=== PATIENT | female | born 1955 | race Caucasian/White ===

== ENCOUNTER 2018-04-16 13:53 | Outpatient (CLI) | payer OTHER ==
--- NOTE | 2018-04-21 23:27 | MMO ---
BILATERAL SCREENING MAMMOGRAMS: Date: 04/16/18 Comparison made to prior exams from 2015 and 2016. This patient's mammogram was interpreted with the assistance of computer-aided detection. FINDINGS: Scattered fibroglandular densities. No mass or distortion. No suspicious calcification. No interval c hange. Recommend one year follow-up. IMPRESSION: BIRADS 1. Negative POS: [facility]
== END 2018-04-16 13:54 | disposition home or self-care (01) ==
LOC: SCSMAMMO 13:53
DX: Z12.31 Encounter for screening mammogram for malignant neoplasm of breast (principal)
CPT/HCPCS: 77067